=== PATIENT | male | born 1940 | race Caucasian/White ===

== ENCOUNTER 2018-12-13 11:49 | Inpatient (IN) | payer MEDICARE ==
[~2018-12-13] VITALS: Ht 165.1 cm; Wt 57.3 kg
[~2018-12-13 11:49] MED LIST: AMBIEN5 MG PO; AMLODIPINE BESYL5 MG PO; BYSTOLIC5 MG PO; CENTRUM SILVER1 EAC1 PO; CO Q10100 MG; FLOMAX0.4 MG PO; GARLIC1 EACH
[2018-12-13] MEDS ORDERED: METHYLPREDNISOLONE SOD SUCC 125 MG/2ML VIAL IV NR (12:00)
--- NOTE | 2018-12-13 12:13 | NUR ---
- Mayuri [phone]
[2018-12-13] MEDS ORDERED: ASPIRIN 81 MG CHEW TAB PO ONE ×2 (12:15→13:00)
[2018-12-13] MEDS ORDERED: SODIUM CHLORIDE 0.9% 1000ML 1,000 ML IV SCH (12:58)
[2018-12-13] MEDS ORDERED: ONDANSETRON HCL INJ 2MG/ML 2ML 2 MG/ML VIAL IV PRN (13:00)
--- NOTE | 2018-12-13 13:12 | Diagnostic Imaging Report ---
EXAMINATION: CHEST SINGLE (PORTABLE) INDICATION: Shortness of breath COMPARISON: None FINDINGS: LINES/TUBES:EKG leads overlie the chest. LUNGS:The lungs are moderately inflated. There are bilateral diffuse increased interstitial opacities and likely bronchiectasis. PLEURA:No pleural effusion or pneumothorax. MEDIASTINUM:The cardiomediastinal silhouette appears normal in size and shape. BONES/SOFT TISSUES:No acute osseous injury. ABDOMEN:No free air under the diaphragm. IMPRESSION: Bilateral diffusely increased interstitial opacities and likely bronchiectasis. Findings are most compatible with chronic interstitial lung disease. Recommend chest CT for further evaluation. Signed by: Iman Pace MD on 12/13/2018 1:08 PM
[2018-12-13] MEDS ORDERED: ALBUTEROL SULF 0.083% NEB SOLN 3 ML NEB NEB STA (13:28)
[2018-12-13] MEDS ORDERED: IPRATROPIUM BROMIDE 0.02% 2.5 ML NEB NEB ONE (13:30)
[2018-12-13 13:33] LABS: BASOPHILS % 0.3 % (0.0-1.0); EOSINOPHILS % 0.6 % (0.0-6.0); HEMATOCRIT 49.6 % (38.2-49.6); LYMPHOCYTES # (AUTO) 0.6 (1.0-3.2); LYMPHOCYTES % 9.1 % (18.0-39.1); MEAN CORPUSCULAR HEMOGLOBIN 32.4 pg (28-32); MEAN CORPUSCULAR HGB CONC 36.3 g/dL (31-35); MEAN CORPUSCULAR VOLUME 89.2 fL (81-99); MONOCYTES # (AUTO) 0.2 (0.2-0.8); NEUTROPHILS # (AUTO) 5.7 (2.1-6.9); NEUTROPHILS % 86.5 % (38.7-80.0); PLATELET COUNT 213 x10e3/uL (140-360); RED BLOOD COUNT 5.56 x10e6/uL (4.3-5.7); RED CELL DISTRIBUTION WIDTH 12.5 % (11.7-14.4)
[2018-12-13 13:42] LABS: INR 1.1; PROTHROMBIN TIME 14.7 seconds (11.9-14.5)
[2018-12-13 13:43] LABS: PARTIAL THROMBOPLASTIN TIME 34.7 seconds (23.8-35.5)
[2018-12-13 13:53] LABS: ALANINE AMINOTRANSFERASE 8 IU/L (0-55); ALBUMIN 3.5 g/dL (3.5-5.0); ALBUMIN/GLOBULIN RATIO 0.9 (0.8-2.0); ALKALINE PHOSPHATASE 115 IU/L (40-150); ANION GAP 16.6 mmol/L (8-16); BLOOD UREA NITROGEN 9 mg/dL (7-26); BUN/CREATININE RATIO 10 (6-25); CALCIUM 10.3 mg/dL (8.4-10.2); CARBON DIOXIDE 22 mmol/L (22-29); CHLORIDE 103 mmol/L (98-107); CREATINE KINASE 19 IU/L (30-200); CREATININE, SERUM 0.87 mg/dL (0.72-1.25); EST GLOMERULAR FILTRATION RATE > 60 ML/MIN (60-); GLUCOSE 125 mg/dL (74-118); POTASSIUM 3.6 mmol/L (3.5-5.1); SODIUM 138 mmol/L (136-145)
[2018-12-13] MEDS: AZITHROMYCIN 500MG/NS 250 ML 250 ML IV SCH (13:55)
[2018-12-13] MEDS: CEFTRIAXONE SOD 1 GM/NS 50 ML 50 ML IV SCH (13:56)
[2018-12-13] MEDS ORDERED: METHYLPREDNISOLONE SOD SUCC 125 MG/2ML VIAL IV SCH ×2 (14:00→21:00)
--- NOTE | 2018-12-13 14:08 | NUR ---
Report to RODO Jolly
[2018-12-13 14:14] LABS: ABG HCO3 21 mmol/L (23-28); ABG PCO2 37 mmHg (41-51); ABG PH 7.37 (7.31-7.41); ABG PO2 96 mmHg (80-105)
[2018-12-13 14:36] VITALS: BP 119/81
--- NOTE | 2018-12-13 14:36 | NUR ---
Pt received from ER at this time, he arrived by stretcher. Pt is aox4 and able to verbalize needs. Denies any pain at this time. Pt was admitted for dyspnea. He complains of SOB with exertion. Pt is able to ambulate with minimal assistance. He is on O2 5L/NC. Family at the bedside.
[2018-12-13] MEDS ORDERED: ALBUTEROL/IPRATROPIUM 3 ML NEB NEB SCH (15:00)
[2018-12-13 15:37] VITALS: BP 119/81
--- NOTE | 2018-12-13 15:47 | Diagnostic Imaging Report ---
EXAM: CT Chest WITHOUT intravenous contrast 12/13/2018 1:34 PM INDICATION: Shortness of breath COMPARISON: Chest radiograph of 12/13/2018 TECHNIQUE: Chest was scanned utilizing a multidetector helical scanner from the lung apex through the level of the adrenal glands without administration of IV contrast. Coronal and sagittal reformations were obtained. Routine protocol was performed. IV CONTRAST: None RADIATION DOSE: Total DLP: 390.5 mGy*cm. Dose modulation, iterative reconstruction, and/or weight based adjustment of the mA/kV was utilized to reduce the radiation dose to as low as reasonably achievable. COMPLICATIONS: None FINDINGS: LINES/ TUBES: None. LUNGS AND AIRWAYS: The central airways are patent. There is diffuse bronchial wall thickening and lower lobe predominant bilateral tubular bronchiectasis. There is severe diffuse centrilobular and paraseptal emphysema. Subpleural lower lobe predominant interstitial thickening and scarring with extensive honeycombing. No focal consolidation. PLEURA: No pleural effusion. No pneumothorax. HEART AND MEDIASTINUM: The thyroid gland appears unremarkable. Numerous prominent mediastinal lymph nodes, for example a 15 x 11mm low pretracheal node (series 2 image 52) and a 25 x 16 mm subcarinal lymph node (series 2 image 63). Right hilar lymphadenopathy measures up to 22 x 16 mm (series 2 image 62). The heart is not enlarged. No pericardial effusion. Atherosclerotic calcifications of the coronary arteries, thoracic aorta, and great vessels. UPPER ABDOMEN: Limited non-contrast views of the upper abdomen show no abnormality within the visualized liver, spleen, pancreas, or kidneys. The adrenal glands are normal. BONES: No acute osseous injury. Mild degenerative changes of the visualized spine. No suspicious lytic or blastic lesions. SOFT TISSUES: Unremarkable. IMPRESSION: Severe diffuse centrilobular and paraseptal emphysema. Lower lobe predominant interstitial thickening and scarring with tubular bronchiectasis and subpleural honeycombing is consistent with interstitial lung disease in a UIP pattern. Atherosclerotic calcifications of the coronary arteries, thoracic aorta, and great vessels. Signed by: Iman Pace MD on 12/13/2018 3:44 PM
[2018-12-13] MEDS ORDERED: METOPROLOL TART50 MG PO (17:45)
[2018-12-13] MEDS ORDERED: CITALOPRAM HBR20 MG PO (17:45)
[2018-12-13] MEDS ORDERED: ACETAMINOPHEN 325 MG TAB PO PRN (18:30)
[2018-12-13] MEDS ORDERED: ALBUTEROL/IPRATROPIUM 3 ML NEB NEB PRN (18:30)
[2018-12-13] MEDS ORDERED: HYDRALAZINE HCL 20 MG/ML VIAL IV PRN (18:30)
[2018-12-13] MEDS: ALBUTEROL/IPRATROPIUM 3 ML NEB NEB SCH (19:00)
--- NOTE | 2018-12-13 19:00 | NUR ---
received report from day nurse. patient is resting comfortably in bed. bed is in lowest position and call porras is within reach. will continue to monitor patient.
[2018-12-13 20:00] VITALS: BP 95/61
[2018-12-13] MEDS: ZOLPIDEM TARTRATE 5 MG TAB PO SCH (21:11)
[2018-12-13] MEDS: GUAIFENESIN 600 MG TAB PO SCH (21:11)
[2018-12-13] MEDS: METHYLPREDNISOLONE SOD SUCC 40 MG/ML VIAL 1ML IV SCH (21:11)
[2018-12-13 23:52] LABS: CREATINE KINASE MB 1.8 ng/mL (0-5.0)
[2018-12-14] VITALS (9 sets, daily range): BP systolic 97–148; BP diastolic 58–87
[2018-12-14 03:59] LABS: HEMOGLOBIN 15.1 g/dL (14.0-18.0); LYMPHOCYTES # (AUTO) 0.4 (1.0-3.2); LYMPHOCYTES % 4.3 % (18.0-39.1); MEAN CORPUSCULAR HEMOGLOBIN 32.5 pg (28-32); MEAN CORPUSCULAR VOLUME 90.3 fL (81-99); MONOCYTES # (AUTO) 0.1 (0.2-0.8); MONOCYTES % 0.9 % (4.4-11.3); NEUTROPHILS # (AUTO) 8.3 (2.1-6.9); NEUTROPHILS % 94.2 % (38.7-80.0); PLATELET COUNT 197 x10e3/uL (140-360); RED BLOOD COUNT 4.65 x10e6/uL (4.3-5.7); RED CELL DISTRIBUTION WIDTH 12.6 % (11.7-14.4)
[2018-12-14 04:23] LABS: INR 1.15; PROTHROMBIN TIME 15.3 seconds (11.9-14.5)
[2018-12-14 04:24] LABS: PARTIAL THROMBOPLASTIN TIME 35.7 seconds (23.8-35.5)
[2018-12-14 04:25] LABS: ALANINE AMINOTRANSFERASE 7 IU/L (0-55); ALBUMIN 2.9 g/dL (3.5-5.0); ALBUMIN/GLOBULIN RATIO 0.9 (0.8-2.0); ALKALINE PHOSPHATASE 96 IU/L (40-150); ANION GAP 11.7 mmol/L (8-16); BILIRUBIN,DIRECT 0.5 mg/dL (0.0-0.5); BLOOD UREA NITROGEN 13 mg/dL (7-26); BUN/CREATININE RATIO 16 (6-25); CALCIUM 9.8 mg/dL (8.4-10.2); CARBON DIOXIDE 25 mmol/L (22-29); CHLORIDE 104 mmol/L (98-107); CREATININE, SERUM 0.81 mg/dL (0.72-1.25); EST GLOMERULAR FILTRATION RATE > 60 ML/MIN (60-); GLUCOSE 195 mg/dL (74-118); POTASSIUM 3.7 mmol/L (3.5-5.1); SODIUM 137 mmol/L (136-145)
[2018-12-14 04:47] LABS: FREE T4 (FREE THYROXINE) 0.95 ng/dL (0.8-1.8); THYROID STIMULATING HORMONE 0.322 uIU/mL (0.350-4.940)
[2018-12-14 04:53] LABS: CREATINE KINASE 28 IU/L (30-200)
--- NOTE | 2018-12-14 06:09 | Diagnostic Imaging Report ---
EXAM EXAMINATION: CHEST SINGLE (PORTABLE) INDICATION: Shortness of breath COMPARISON: 12/13/2018. FINDINGS: LINES/TUBES:None. LUNGS:Redemonstration of bilateral diffuse coarsening of the pulmonary interstitium associated with honeycombing PLEURA:No pleural effusion or pneumothorax. MEDIASTINUM:The cardiomediastinal silhouette appears normal in size and shape. BONES/SOFT TISSUES:No acute osseous injury. ABDOMEN:No free air under the diaphragm. IMPRESSION: Stable examination. No change in bilateral diffuse interstitial lung disease pattern most suggestive of pulmonary fibrosis. Signed by: Dr. Charleen Santana M.D. on 12/14/2018 6:05 AM
--- NOTE | 2018-12-14 06:58 | NUR ---
RECEIVED PATIENT RESTING IN BED. NO ACUTE DISTRESS NOTED. NO S/S OF PAIN NOTED AT THIS TIME. CALL LIGHT WITHIN REACH. BED IN THE LOWEST POSITION.
--- NOTE | 2018-12-14 07:17 | NUR ---
report given to day nurse. patient is resting comfortably in bed. bed is in lowest position and call porras is within reach.
[2018-12-14] MEDS: ALBUTEROL/IPRATROPIUM 3 ML NEB NEB SCH ×4 (07:40→20:10)
[2018-12-14 07:48] LABS: BAND NEUTROPHILS % (MANUAL) 4 %; LYMPHOCYTES % (MANUAL) 4 % (19-48); NEUTROPHILS % (MANUAL) 92 % (40-74)
[2018-12-14 07:49] LABS: ANISOCYTOSIS S; PLATELET ESTIMATE ADEQUATE; PLATELET MORPHOLOGY COMMENT NORMAL; POIKILOCYTOSIS S; RBC MORPHOLOGY COMMENT NORMAL
[2018-12-14] MEDS: METHYLPREDNISOLONE SOD SUCC 40 MG/ML VIAL 1ML IV SCH ×2 (08:21→20:53)
[2018-12-14] MEDS: METOPROLOL TARTRATE 50 MG TAB PO SCH (08:21)
[2018-12-14] MEDS: TAMSULOSIN HCL 0.4 MG CAP PO SCH (08:21)
[2018-12-14] MEDS: FAMOTIDINE 20 MG TAB PO SCH ×2 (08:21→16:01)
[2018-12-14] MEDS: CITALOPRAM HYDROBROMIDE 20 MG TAB PO SCH (08:21)
[2018-12-14] MEDS: GUAIFENESIN 600 MG TAB PO SCH ×2 (08:22→20:53)
--- NOTE | 2018-12-14 10:25 | NUR ---
EDUCATED ABOUT VAUGHAN, SIGNED, FILED IN CHART, WITH COPY LEFT WITH FAMILY AT BEDSIDE. SPOKE
[2018-12-14] MEDS: CEFTRIAXONE SOD 1 GM/NS 50 ML 50 ML IV SCH (13:48)
[2018-12-14] MEDS: AZITHROMYCIN 500MG/NS 250 ML 250 ML IV SCH (14:27)
--- NOTE | 2018-12-14 15:02 | Consultation ---
DATE OF CONSULTATION: Pulmonary Critical Care Consultation CHIEF COMPLAINT: Dyspnea and weight loss. HISTORY OF PRESENT ILLNESS: The patient is a 78-year-old man. He has a history of COPD for 4 to 5 years. He uses inhalers at home, but does not have oxygen. He has been more short of breath over the past several months. He also notes a 20-pound weight loss over the past month. He denies fever. He is not complaining of chest pain. PAST MEDICAL HISTORY: 1. Atrial fibrillation. 2. COPD. 3. Bladder cancer. PAST SURGICAL HISTORY: Status post cystoscopy with tumor ablation. FAMILY HISTORY: Diabetes. SOCIAL HISTORY: The patient quit smoking several years ago. He is not a drinker. ALLERGIES: NO KNOWN DRUG ALLERGIES. REVIEW OF SYSTEMS: The patient is afebrile. He does have a recent 20-pound weight loss. He has no facial swelling or erythema. He does not complain of swollen glands. He has no chest pain. He does have dyspnea with exertion. He has minimal cough. He has no abdominal pain. He has no nausea or vomiting. He has no leg edema. PHYSICAL EXAMINATION: VITAL SIGNS: The patient is afebrile. The blood pressure is 114/72 and saturation is 96%. Pulse is 63. HEENT: Shows no facial swelling or erythema. The nasal mucosa is normal. The oropharynx is normal. LYMPHATIC: Shows no submandibular, cervical, or supraclavicular adenopathy. CARDIAC: Reveals a regular rate and rhythm with a normal S1 and S2. There are no murmurs or rubs. LUNGS: Auscultation of lungs reveals rhonchorous breath sounds bilaterally. There is no wheezing. ABDOMEN: Soft and nontender. There is no rebound or guarding. EXTREMITIES: Show no leg edema or calf tenderness. There is no cyanosis or clubbing. SKIN: Shows no rashes. NEUROLOGICAL: Shows no focal abnormalities. RADIOGRAPHIC DATA: Chest CT shows severe diffuse central lobular emphysema. He also has interstitial changes and bronchiectasis bilaterally in the lower lung faith. IMPRESSION: 1. Bronchiectasis with acute exacerbation. 2. Chronic obstructive pulmonary disease with acute exacerbation. 3. Severe protein-calorie malnutrition. 4. Atrial fibrillation. 5. Benign prostatic hypertrophy with some urinary retention. RECOMMENDATIONS: 1. Taper steroids. 2. The patient should be on a maintenance inhaler such as Trelegy daily as an outpatient with albuterol for rescue. 3. Dietary evaluation. 4. Nutritional supplements. 5. Given the bronchiectasis and recent weight loss, the patient also needs an evaluation for atypical mycobacterial infection. This may require a bronchoscopy as an outpatient. 6. Physical therapy. 7. Echocardiogram and Cardiology evaluation. MD MARIELA Melo/JOSIAS /[id number]
--- NOTE | 2018-12-14 15:40 | NUR ---
Nutrition Intervention Note RD Recommendation(s) for Physician: -Continue diet as ordered -Rec Glucerna BID to increase protein-calorie intake -The patient meets criteria for unspecified SEVERE protein-calorie malnutrition. Plan of Care: RD following, monitoring for tolerance and adequacy, ONS rec Nutrition reason for involvement: Nutrition risk trigger MST RD Assessment 12/14 78yo M, who was admitted for dyspnea and hypoxia. Currently on IV steroid and IV abx. Visited pt in the room. Per , pt has been eating poorly for over 6 months. stated sometimes he eats 3 meals a day and sometimes just once a day. Pt has had ~20lbs weight loss in the last 6 months. Pt denied any nausea and vomiting today. Pt ate better since hospital admission with 75-100% recorded meal intake. LBM 12/14. Pt denied any chewing or swallowing difficulty. RD discussed menu options with pt and . Pt was also willing to try Glucerna. Will continue to monitor and follow. Principal Problems/Diagnoses: 1. Bronchiectasis with acute exacerbation. 2. Chronic obstructive pulmonary disease with acute exacerbation. 3. Severe protein-calorie malnutrition. PMH: COPD, bladder cancer, Afib GI: abdomen soft, flatus present Skin: no pressure wound noted Labs: (12/14) Glucose 195 H Meds: abx, solu-medrol, pepcid Ht: 65in Wt: 124.5lb BMI: 20.7kg/m2 IBW: 136lb +/- 10% Malnutrition Evaluation (12/14) The patient meets criteria for unspecified SEVERE protein-calorie malnutrition. Energy intake: <75% of estimated intake for >1 month Weight loss: >7.5% in 3 months (Chronic) Fat loss: Moderate clavicle protrusion, hollow look around orbital region Muscle loss: Moderate temporal depression Supporting Evidence: Fluid accumulation: None Functional Status: reduced Nutrition Prescription (Diet Order): cardiac diet Estimated Nutritional Needs: Calories: 1425 1995kcal(25-35kcal/kg/d) Weight used: CBW Protein: 57 86g (1-1.5g/kg/d) Weight used: CBW Diet Adequacy: Meeting calorie needs, Not meeting protein needs Diet Education Needs Assessment: Diet education not indicated. Nutrition Care Level: Moderate Nutrition Diagnosis: Severe malnutrition related to inadequate energy intake as evidenced by <75% of estimated intake for >1 month, >7.5% weight loss in 3 months (Chronic), and moderate muscle/ fat loss. Goal: Patient will meet 75-100% of estimated needs by follow up Progress: Progressing Interventions: Modified diet, Commercial beverage Monitoring/Evaluation: Total energy intake, Total protein intake, Modified diet, Liquid supplement, Weight change Signed: Christine Dia MS, RD, LD
--- NOTE | 2018-12-14 19:02 | NUR ---
REPORT GIVEN TO ONCOMING NURSE. WALKING ROUNDS DONE. PATIENT IS RESTING IN BED. NO ACUTE DISTRESS NOTED. CALL LIGHT WITHIN REACH. BED IN THE LOWEST POSITION.
[2018-12-14] MEDS: ZOLPIDEM TARTRATE 5 MG TAB PO SCH (20:53)
[2018-12-15] VITALS (9 sets, daily range): BP systolic 118–162; BP diastolic 62–83
[2018-12-15] MEDS: ALBUTEROL/IPRATROPIUM 3 ML NEB NEB SCH ×4 (01:10→19:05)
[2018-12-15 02:32] LABS: BASOPHILS % 0.1 % (0.0-1.0); HEMATOCRIT 41.8 % (38.2-49.6); HEMOGLOBIN 14.6 g/dL (14.0-18.0); LYMPHOCYTES # (AUTO) 0.6 (1.0-3.2); LYMPHOCYTES % 3.5 % (18.0-39.1); MEAN CORPUSCULAR HEMOGLOBIN 32.6 pg (28-32); MEAN CORPUSCULAR HGB CONC 34.9 g/dL (31-35); MEAN CORPUSCULAR VOLUME 93.3 fL (81-99); MONOCYTES # (AUTO) 0.4 (0.2-0.8); MONOCYTES % 2.3 % (4.4-11.3); NEUTROPHILS # (AUTO) 16.8 (2.1-6.9); NEUTROPHILS % 93.3 % (38.7-80.0); PLATELET COUNT 200 x10e3/uL (140-360); RED BLOOD COUNT 4.48 x10e6/uL (4.3-5.7); RED CELL DISTRIBUTION WIDTH 13.2 % (11.7-14.4)
[2018-12-15 03:15] LABS: ANION GAP 14.4 mmol/L (8-16); BLOOD UREA NITROGEN 15 mg/dL (7-26); BUN/CREATININE RATIO 18 (6-25); CALCIUM 10.2 mg/dL (8.4-10.2); CARBON DIOXIDE 24 mmol/L (22-29); CHLORIDE 106 mmol/L (98-107); CREATININE, SERUM 0.85 mg/dL (0.72-1.25); EST GLOMERULAR FILTRATION RATE > 60 ML/MIN (60-); GLUCOSE 164 mg/dL (74-118); POTASSIUM 4.4 mmol/L (3.5-5.1); SODIUM 140 mmol/L (136-145)
[2018-12-15] MEDS ORDERED: ALBUTEROL HFA INH (06:26)
[2018-12-15] MEDS ORDERED: TRELEGY INH (06:26)
[2018-12-15] MEDS ORDERED: ZITHROMAX500 MG PO (06:26)
[2018-12-15] MEDS ORDERED: CEFDINIR300 MG PO (06:26)
[2018-12-15] MEDS ORDERED: PREDNISONE10 MG PO (06:28)
--- NOTE | 2018-12-15 06:52 | NUR ---
RECEIVED PATIENT RESTING IN BED. NO ACUTE DISTRESS NOTED. NO S/S OF PAIN NOTED AT THIS TIME. FAMILY MEMBER AT BEDSIDE. CALL LIGHT WITHIN REACH. BED IN THE LOWEST POSITION.
[2018-12-15] MEDS: FAMOTIDINE 20 MG TAB PO SCH ×2 (08:25→16:04)
[2018-12-15] MEDS: CITALOPRAM HYDROBROMIDE 20 MG TAB PO SCH (08:25)
[2018-12-15] MEDS: GUAIFENESIN 600 MG TAB PO SCH ×2 (08:25→21:16)
[2018-12-15] MEDS: METHYLPREDNISOLONE SOD SUCC 40 MG/ML VIAL 1ML IV SCH ×2 (08:25→21:16)
[2018-12-15] MEDS: TAMSULOSIN HCL 0.4 MG CAP PO SCH (08:25)
[2018-12-15] MEDS: METOPROLOL TARTRATE 50 MG TAB PO SCH (08:25)
--- NOTE | 2018-12-15 10:01 | NUR ---
0930 Pt was 95% on 4L HFNC at rest. 0935 Pt was 84% on Room Air at rest.
--- NOTE | 2018-12-15 10:14 | NUR ---
Met with pt and his . Both agree to home oxygen. Signed choice letter for [facility] [phone]. Notified Shawn with [employer] [phone]. Oxygen will be delivered today. Updated nurse.
[2018-12-15] MEDS: CEFTRIAXONE SOD 1 GM/NS 50 ML 50 ML IV SCH (13:12)
[2018-12-15] MEDS: AZITHROMYCIN 500MG/NS 250 ML 250 ML IV SCH (13:50)
[2018-12-15] MEDS ORDERED: RISPERIDONE 0.5 MG TAB PO NR (15:00)
--- NOTE | 2018-12-15 15:00 | NUR ---
PATIENT GETTING AGITATED, CONFUSED. IV LINES PULLED. DR. VICENTE ROUNDING ON PATIENT.
--- NOTE | 2018-12-15 15:02 | Progress Note ---
DATE: Pulmonary Critical Care Progress Note SUBJECTIVE: The patient is somewhat agitated and confused today. He still have some dyspnea, although it is improved yesterday. PHYSICAL EXAMINATION: VITAL SIGNS: The blood pressure is 124/74 and saturation is 99%, and his pulse rate is 57. HEENT: Shows no facial swelling or erythema. CARDIAC: Reveals regular rate and rhythm with a normal S1 and S2. There are no murmurs or rubs heard. LUNGS: Auscultation of lungs reveals a prolonged expiratory phase bilaterally. There is no wheezing. ABDOMEN: Soft and nontender. There is no rebound or guarding. EXTREMITIES: Show no leg edema or calf tenderness. There is no cyanosis or clubbing. SKIN: Shows no rashes. NEUROLOGICAL: Shows no focal abnormalities. LABORATORY DATA: White blood cell count is 18 and hemoglobin is 14.6. The platelet count is 200. The BUN to creatinine ratio is normal. The other electrolytes are within normal limits. IMPRESSION: 1. Metabolic encephalopathy. 2. Bronchiectasis with acute exacerbation. 3. Chronic obstructive pulmonary disease with acute exacerbation. 4. Severe protein-calorie malnutrition. 5. Atrial fibrillation. 6. Benign prostatic hypertrophy with urinary retention. PLAN: 1. Decrease steroids to prevent any worsening encephalopathy. 2. Low-dose risperidone for agitation. 3. Bronchodilators. 4. Oxygen. 5. Continue nutritional supplementation. 6. We will discuss the case with Anna Espinal and Dr. Lovett. Ari Stanley MD [facility]/MODL /[id number]
--- NOTE | 2018-12-15 15:20 | NUR ---
PATIENT GETTING AGITATED, PULLED OUT IVS. DR. VICENTE ROUNDING. PER MD SITTER ORDERED. MD AWARE OF IVS BEING OUT AND PATIENT NEEDING IV ABX.
--- NOTE | 2018-12-15 18:57 | NUR ---
Report given to oncoming nurse. Walking rounds done. Patient is resting in bed. No acute distress noted. No s/s of pain noted at this time. Sitter at bedside. Call light within reach. Bed in the lowest position.
[2018-12-15] MEDS: RISPERIDONE 0.5 MG TAB PO SCH (19:38)
[2018-12-15] MEDS: ZOLPIDEM TARTRATE 5 MG TAB PO SCH (21:16)
[2018-12-15] MEDS: LORAZEPAM 0.5 MG TAB PO PRN (23:35)
[2018-12-16] VITALS (7 sets, daily range): BP systolic 141–155; BP diastolic 68–93
[2018-12-16] MEDS: ALBUTEROL/IPRATROPIUM 3 ML NEB NEB SCH ×4 (00:35→19:30)
[2018-12-16 02:55] LABS: BASOPHILS % 0.1 % (0.0-1.0); HEMOGLOBIN 14.8 g/dL (14.0-18.0); LYMPHOCYTES # (AUTO) 0.5 (1.0-3.2); LYMPHOCYTES % 3.9 % (18.0-39.1); MEAN CORPUSCULAR HEMOGLOBIN 33.5 pg (28-32); MEAN CORPUSCULAR HGB CONC 35.2 g/dL (31-35); MONOCYTES # (AUTO) 0.4 (0.2-0.8); MONOCYTES % 3.4 % (4.4-11.3); NEUTROPHILS # (AUTO) 11.6 (2.1-6.9); PLATELET COUNT 117 x10e3/uL (140-360); RED BLOOD COUNT 4.42 x10e6/uL (4.3-5.7); RED CELL DISTRIBUTION WIDTH 13.1 % (11.7-14.4)
[2018-12-16 03:30] LABS: ALANINE AMINOTRANSFERASE 18 IU/L (0-55); ALBUMIN 3.1 g/dL (3.5-5.0); ALKALINE PHOSPHATASE 82 IU/L (40-150); ANION GAP 15.1 mmol/L (8-16); BLOOD UREA NITROGEN 22 mg/dL (7-26); BUN/CREATININE RATIO 28 (6-25); CALCIUM 10.4 mg/dL (8.4-10.2); CARBON DIOXIDE 27 mmol/L (22-29); CHLORIDE 104 mmol/L (98-107); EST GLOMERULAR FILTRATION RATE > 60 ML/MIN (60-); GLUCOSE 127 mg/dL (74-118); POTASSIUM 4.1 mmol/L (3.5-5.1); SODIUM 142 mmol/L (136-145)
--- NOTE | 2018-12-16 07:00 | NUR ---
Report given to oncoming nurse. Walking rounds done. Patient is resting in bed, no acute distress noted. at bedside. 1:1 sitter at bedside. Call light within reach. Bed in the lowest position.
--- NOTE | 2018-12-16 07:00 | NUR ---
Received patient resting in bed. Respirations even and unlabored, no acute distress noted. No s/s of pain noted. at bedside. 1:1 sitter at bedside. Call light within reach. Bed in the lowest position. Addendum: 12/16/18 at 0726 by TYLER BATES RN Wrong time. 0703 correct time.
[2018-12-16] MEDS: METOPROLOL TARTRATE 50 MG TAB PO SCH (08:47)
[2018-12-16] MEDS: FAMOTIDINE 20 MG TAB PO SCH ×2 (08:47→16:30)
[2018-12-16] MEDS: TAMSULOSIN HCL 0.4 MG CAP PO SCH (08:47)
[2018-12-16] MEDS: CITALOPRAM HYDROBROMIDE 20 MG TAB PO SCH (08:47)
[2018-12-16] MEDS: GUAIFENESIN 600 MG TAB PO SCH ×2 (08:47→20:20)
[2018-12-16] MEDS: RISPERIDONE 0.5 MG TAB PO SCH ×2 (08:47→18:04)
[2018-12-16] MEDS: METHYLPREDNISOLONE SOD SUCC 40 MG/ML VIAL 1ML IV SCH (08:49)
--- NOTE | 2018-12-16 10:13 | NUR ---
PAGED DR. VICENTE TO NOTIFY THAT PATIENT IS SEEING THINGS. PATIENT KEEPS TELLING SITTER THAT THERE ARE ANTS ON HIS CUP. NO ANSWER, LVM. WAITING EDUCATIONAL MANAGER BACK.
--- NOTE | 2018-12-16 10:19 | NUR ---
DR. VICENTE ROUNDING ON PATIENT. NOTIFIED HIM OF PATIENT SEEING ANTS. NEW ORDERS PUT IN.
--- NOTE | 2018-12-16 10:40 | NUR ---
PATIENT OFF THE UNIT FOR MRI AND CT SCAN.
[2018-12-16] MEDS: LORAZEPAM 0.5 MG TAB PO PRN ×2 (11:18→20:20)
--- NOTE | 2018-12-16 11:21 | Progress Note ---
DATE: SUBJECTIVE: The patient remains confused. He complains that there are some ants in the room. He did not sleep well last night. He has less dyspnea. PHYSICAL EXAMINATION: VITAL SIGNS: The patient is afebrile. Vital signs are stable. HEENT: Shows no facial swelling or erythema. CARDIAC: Reveals regular rate and rhythm with normal S1 and S2. There are no murmurs or rubs heard. LUNGS: Auscultation of lungs reveals prolonged expiratory phase bilaterally. ABDOMEN: Soft, nontender. There is no rebound or guarding. EXTREMITIES: Show no leg edema or calf tenderness. There is no cyanosis or clubbing. SKIN: Shows no rashes. NEUROLOGIC: Shows confusion. IMPRESSION: 1. Metabolic encephalopathy. 2. Bronchiectasis with acute exacerbation. 3. Chronic obstructive pulmonary disease with acute exacerbation. 4. Benign prostatic hypertrophy. PLAN: 1. Discontinue Solu-Medrol, which could be worsening confusion. 2. Stop Ambien and use trazodone 50 mg p.o. at night for sleep. 3. Continue a sitter. Because of the patient's confusion and agitation, he is at high risk for falling. 4. Imaging of the brain is scheduled for today. 5. Continue nutritional supplements. MD MARIELA Melo/JOSIAS /[id number]
--- NOTE | 2018-12-16 11:26 | Diagnostic Imaging Report ---
CT BRAIN WO HISTORY: Altered mental status COMPARISON: None. Technique: Noncontrast axial scans were obtained from skull base to the vertex. Coronal and sagittal reconstructions obtained from the axial data. One or more of the following dose reduction techniques were used: Automated exposure control, adjustment of the mA and/or kV according to patient size, and/or utilization of iterative reconstruction technique. DISCUSSION: Scalp/Skull: Unremarkable. Brain sulci: Mildly prominent. Ventricles: Compensatory dilatation. Extra-axial spaces: No masses or fluid collections. Carotid and vertebral artery calcifications are present. Parenchyma: Mild right temporal pole and bilateral medial orbitofrontal encephalomalacia may be from remote trauma. Mild bilateral deep white matter hypodensity is likely chronic microvascular ischemic change. Otherwise, no masses, hemorrhage, or large vascular territory acute infarct. Dural sinuses: No abnormal densities. Sellar/Suprasellar region: Intact. Skull base: Intact. Incidental findings: None. IMPRESSION: 1. No acute intracranial abnormalities. 2. Mild supratentorial chronic microvascular ischemic change. Mild generalized cerebral volume loss. 3. Mild right temporal pole and bilateral orbitofrontal encephalomalacia may be from remote trauma. Signed by: Dr. Buzz Jain M.D. on 12/16/2018 11:23 AM
--- NOTE | 2018-12-16 11:53 | NUR ---
PATIENT BACK TO UNIT AT THIS TIME.
--- NOTE | 2018-12-16 11:58 | NUR ---
NOTIFIED DR. VICENTE OF CT RESULTS AND MRI NOT BEING DONE DUE TO PATIENT GETTING AGGRESSIVE. PER MD CANCEL MRI.
[2018-12-16] MEDS ORDERED: SODIUM CHLORIDE 0.9% 250ML 250 ML ONE (12:54)
[2018-12-16] MEDS: CEFTRIAXONE SOD 1 GM/NS 50 ML 50 ML IV SCH (13:00)
[2018-12-16 13:12] LABS: BAND NEUTROPHILS % (MANUAL) 4 %; LYMPHOCYTES % (MANUAL) 6 % (19-48); MONOCYTES % (MANUAL) 3 % (3.4-9.0)
[2018-12-16 13:13] LABS: NEUTROPHILS % (MANUAL) 87 % (40-74)
[2018-12-16 13:14] LABS: PLATELET ESTIMATE SLIGHTLY DECREASED; PLATELET MORPHOLOGY COMMENT NORMAL; RBC MORPHOLOGY COMMENT NORMAL
[2018-12-16] MEDS: AZITHROMYCIN 500MG/NS 250 ML 250 ML IV SCH (13:40)
--- NOTE | 2018-12-16 18:05 | NUR ---
Patient trying to get out of bed. Medicated patient with scheduled risperdal. 1: sitter at bedside. Will continue to monitor.
--- NOTE | 2018-12-16 19:05 | NUR ---
PT IS RESTING IN BED WITH AND 1:1 SITTER AT BEDSIDE. RESPIRATION IS EVEN AND UNLABORED, NO DISTRESS NOTED. BED IN THE LOWEST POSITION, LOCKED, BED ALARM ON, AND CALL LIGHT WITHIN REACH. WILL CONTINUE TO MONITOR.
[2018-12-16] MEDS ORDERED: TRAZODONE HCL 50 MG TAB PO SCH (21:00)
[2018-12-17] VITALS (8 sets, daily range): BP systolic 84–154; BP diastolic 61–95
[2018-12-17] MEDS: AZITHROMYCIN 500MG/NS 250 ML 250 ML IV SCH (02:30)
[2018-12-17 03:57] LABS: EOSINOPHILS % 0.3 % (0.0-6.0); HEMATOCRIT 47.1 % (38.2-49.6); HEMOGLOBIN 16.3 g/dL (14.0-18.0); LYMPHOCYTES # (AUTO) 1.3 (1.0-3.2); LYMPHOCYTES % 11.4 % (18.0-39.1); MEAN CORPUSCULAR HEMOGLOBIN 32.3 pg (28-32); MEAN CORPUSCULAR HGB CONC 34.6 g/dL (31-35); MEAN CORPUSCULAR VOLUME 93.5 fL (81-99); MONOCYTES # (AUTO) 0.8 (0.2-0.8); MONOCYTES % 6.8 % (4.4-11.3); NEUTROPHILS # (AUTO) 9.4 (2.1-6.9); NEUTROPHILS % 80.9 % (38.7-80.0); PLATELET COUNT 217 x10e3/uL (140-360); RED BLOOD COUNT 5.04 x10e6/uL (4.3-5.7); RED CELL DISTRIBUTION WIDTH 13.1 % (11.7-14.4)
[2018-12-17 04:16] LABS: ANION GAP 10.4 mmol/L (8-16); BLOOD UREA NITROGEN 15 mg/dL (7-26); BUN/CREATININE RATIO 22 (6-25); CALCIUM 9.9 mg/dL (8.4-10.2); CARBON DIOXIDE 30 mmol/L (22-29); CHLORIDE 101 mmol/L (98-107); CREATININE, SERUM 0.67 mg/dL (0.72-1.25); EST GLOMERULAR FILTRATION RATE > 60 ML/MIN (60-); GLUCOSE 106 mg/dL (74-118); POTASSIUM 4.4 mmol/L (3.5-5.1); SODIUM 137 mmol/L (136-145)
[2018-12-17] MEDS: LORAZEPAM 0.5 MG TAB PO PRN (04:54)
--- NOTE | 2018-12-17 05:18 | NUR ---
PER UNDERWRITING CLERK GORDON CAILIN STOP ATIVAN 0.5MG TAB Q6H PRN AND CANCEL URINALYSIS WITH MICRO. WILL CONTINUE TO MONITOR.
[2018-12-17] MEDS ORDERED: FUROSEMIDE INJ 10 MG/ML 4 ML VIAL IV ONE (05:45)
[2018-12-17 06:53] LABS: BILIRUBIN,URINE NEGATIVE (NEGATIVE); CLARITY,URINE CLEAR (CLEAR); COLOR,URINE YELLOW (YELLOW); KETONES,URINE NEGATIVE (NEGATIVE); LEUKOCYTE ESTERASE ,URINE NEGATIVE (NEGATIVE); NITRITE,URINE NEGATIVE (NEGATIVE); PROTEIN,URINE DIPSTICK NEGATIVE (NEGATIVE); URINE UROBILINOGEN 0.2 mg/dL (0.2 - 1)
--- NOTE | 2018-12-17 07:00 | NUR ---
RECEIVED PATIENT IN BEDSIDE REPORT. PATIENT IS SLEEPING IN BED. AROUSABLE, BUT QUICKLY FALLS BACK ASLEEP. L FA 20G IV ASYMPTOMATIC, INTACT, AND PATENT. AT BEDSIDE. BED LOCKED IN LOWEST POSITION, SIDE RAILS UPX2, CALL LIGHT IN REACH, 1:1 SITTER AT BEDSIDE.
[2018-12-17] MEDS: ALBUTEROL/IPRATROPIUM 3 ML NEB NEB SCH ×4 (07:10→19:15)
[2018-12-17 07:15] LABS: BACTERIA,URINE FEW /HPF; EPITHELIAL CELLS,URINE FEW /LPF; RBC,URINE 0-5 /HPF (0-5); WBC,URINE (MAN) 0-5 /HPF (0-5)
[2018-12-17] MEDS: FAMOTIDINE 20 MG TAB PO SCH ×2 (07:30→17:48)
[2018-12-17] MEDS: GUAIFENESIN 600 MG TAB PO SCH ×2 (09:00→21:04)
[2018-12-17] MEDS: CITALOPRAM HYDROBROMIDE 20 MG TAB PO SCH (09:00)
[2018-12-17] MEDS: RISPERIDONE 0.5 MG TAB PO SCH (09:00)
[2018-12-17] MEDS: TAMSULOSIN HCL 0.4 MG CAP PO SCH (09:00)
[2018-12-17] MEDS: METOPROLOL TARTRATE 50 MG TAB PO SCH (09:00)
--- NOTE | 2018-12-17 12:00 | NUR ---
PATIENT SLOWLY WAKING UP, ATE SOME BREAKFAST, BUT FALLS BACK ASLEEP OFTEN. EASILY AROUSED. SITTER AT BEDSIDE.
--- NOTE | 2018-12-17 12:26 | NUR ---
EDUCATED ABOUT IMM, SIGNED, FILED IN CHART, WITH COPY LEFT WITH FAMILY AT BEDSIDE.
[2018-12-17] MEDS: CEFTRIAXONE SOD 1 GM/NS 50 ML 50 ML IV SCH (13:51)
[2018-12-17 14:33] LABS: ABG HCO3 36 mmol/L (23-28); ABG PCO2 57 mmHg (41-51); ABG PO2 129 mmHg (80-105)
[2018-12-17] MEDS ORDERED: TRAZODONE HCL 50 MG TAB PO PRN (14:45)
[2018-12-17] MEDS ORDERED: HALOPERIDOL LACTATE 5 MG/ML VIAL IM PRN (14:45)
--- NOTE | 2018-12-17 16:03 | Progress Note ---
DATE: Pulmonary Critical Care Progress Note SUBJECTIVE: The patient is less agitated. He is eating better. He still has some daytime somnolence. PHYSICAL EXAMINATION: VITAL SIGNS: The patient is afebrile. The vital signs are stable. HEENT: Shows no facial swelling or erythema. CARDIAC: Reveals a regular rate and rhythm with normal S1, S2. LUNGS: Auscultation of lungs shows clear breath sounds bilaterally. There is no wheezing. ABDOMEN: Soft, nontender. There is no rebound or guarding. EXTREMITIES: Show no leg edema or calf tenderness. There is no cyanosis or clubbing. SKIN: Shows no rashes. NEUROLOGICAL: Shows no focal abnormalities. IMPRESSION: 1. Metabolic encephalopathy. 2. Bronchiectasis with acute exacerbation. 3. Moderate protein-calorie malnutrition. 4. Chronic obstructive pulmonary disease with acute exacerbation. 5. Benign prostatic hypertrophy. PLAN: 1. Repeat ABG. 2. Continue oxygen. 3. Continue bronchodilators. 4. Decrease risperidone to 0.25 mg p.o. at bedtime. Ari Stanley MD [facility]/MODL /[id number]
--- NOTE | 2018-12-17 16:30 | NUR ---
PATIENT TO MRI AT THIS TIME. PATIENT AWAKE, TRANSFERRED TO WHEELCHAIR WITH ASSISTANCE. ACCOMPANYING TO MRI TO BE THERE IN CASE HE GETS AGITATED TO TRY TO CALM HIM DOWN. PATIENT CALM AT THIS TIME.
--- NOTE | 2018-12-17 17:45 | NUR ---
PATIENT RETURNED FROM MRI. PATIENT TOLERATED PROCEDURE WELL. PATIENT IS AWAKE AND ABLE TO SPEAK, THOUGH STILL SPEAKS SLOWLY. PATIENT EATING DINNER. SITTER AND AT BEDSIDE. NO PAIN REPORTED. NO ANXIETY NOTED. PATIENT WANTS TO GO HOME, BUT IS NOT COMBATIVE OR AGITATED AT THIS TIME.
--- NOTE | 2018-12-17 19:25 | NUR ---
PT IS RESTING IN BED WITH HIS AND 1:1 SITTER AT BEDSIDE. RESPIRATION IS EVEN AND UNLABORED, NO DISTRESS NOTED. BED IN THE LOWEST POSITION, LOCKED, BED ALARM ON, AND CALL LIGHT WITHIN REACH. WILL CONTINUE TO MONITOR.
[2018-12-17] MEDS ORDERED: RISPERIDONE 0.5 MG TAB PO SCH ×2 (21:00)
[2018-12-17] MEDS ORDERED: RISPERIDONE 0.5 MG TAB PO PRN (21:00)
--- NOTE | 2018-12-17 22:34 | Consultation ---
DATE OF CONSULTATION: 12/17/2018 REASON FOR CONSULTATION: To evaluate patient's psychosis. HISTORY OF PRESENT ILLNESS: The patient is a 78-year-old male admitted to the hospital for hypoxia and dyspnea. Psychiatric consultation is called to evaluate the patient's psychosis and hallucination, agitation. As per the medical record, the patient has a history of COPD, atrial fibrillation, and bladder cancer. The patient apparently has been losing weight 20 pounds over the last month. The patient is found to be in the room today with his and sitter. The patient is lying on the bed. History is taken with the help of the at first. The patient's reports that he is not confused. He is forgetful at home. He has never been diagnosed with dementia or any mood issues in the past. Two days after admission to the hospital, he is confused, starting to hallucinate, but since he has been sleeping a lot as per the . The patient is calm at this time. As per nurse, the patient has been agitated last night. He got a p.r.n. Ativan and also another one at 05:00 a.m. today. He has been sleeping throughout most of the day. The patient is arousable and oriented to self, place, and time. His speech is very soft. He reports doing okay. Denies any depression. Denies any anxiety. Denies any hallucination. No suicidal ideation reported. He is not combative. PAST PSYCHIATRIC HISTORY: The patient has never seen a psychiatrist. Has never attempted suicide. Drinks alcohol occasionally. He does not use drugs. FAMILY HISTORY: Denies. SOCIAL HISTORY: The patient lives with his . MENTAL STATUS EXAM: The patient is an elderly male. He is alert, awake, and oriented to situation. His mood is dysphoric. Affect is congruent. Psychomotor state is retardation. He does not have any suicidal or homicidal ideation. Denies any hallucination. Insight and judgment are fair. Memory appears to be grossly intact. CURRENT MEDICATIONS: 1. Ceftriaxone. 2. Albuterol. 3. Trazodone 50 mg p.o. q.h.s. 4. Azithromycin. 5. Ondansetron. 6. Famotidine. 7. Flomax. 8. Metoprolol. 9. Celexa 10 mg p.o. daily. 10. Mucinex. 11. Risperdal 0.25 mg p.o. q.h.s. 12. Hydralazine. 13. Tylenol. CURRENT LABS: WBC 7.65, RBC 5.04, hemoglobin 16.2, hematocrit 47.1, platelet is 217. Chemistry; sodium 137, potassium 4.4, chloride 101, CO2 30, BUN 15, creatinine 0.67, AST 23, and ALT 18. ASSESSMENT: Unspecified psychosis. PLAN: 1. Add Risperdal 0.5 mg p.o. 3 times a day as needed. 2. Continue with Risperdal 0.25 mg p.o. at q.h.s. 3. Change trazodone 50 mg p.o. q.h.s. to h.s. p.r.n. 4. Add Haldol 1 mg IM q.6 hours p.r.n. 5. Continue Celexa 10 mg p.o. daily. 6. Monitor for agitation. Thank you for this consultation. Discussed with nursing staff and family members. Dictated by Ashleigh Ashford PA-C Stanley Trejo MD [facility] /[id number]
[2018-12-18] VITALS (7 sets, daily range): BP systolic 72–123; BP diastolic 44–83
[2018-12-18] MEDS: ALBUTEROL/IPRATROPIUM 3 ML NEB NEB SCH ×3 (00:10→13:45)
[2018-12-18 04:40] LABS: BASOPHILS % 0.2 % (0.0-1.0); EOSINOPHILS # (AUTO) 0.2 (0.0-0.4); EOSINOPHILS % 1.8 % (0.0-6.0); HEMATOCRIT 52.2 % (38.2-49.6); HEMOGLOBIN 17.5 g/dL (14.0-18.0); LYMPHOCYTES # (AUTO) 2.3 (1.0-3.2); LYMPHOCYTES % 26.2 % (18.0-39.1); MEAN CORPUSCULAR HEMOGLOBIN 31.9 pg (28-32); MEAN CORPUSCULAR HGB CONC 33.5 g/dL (31-35); MEAN CORPUSCULAR VOLUME 95.1 fL (81-99); MONOCYTES % 11.5 % (4.4-11.3); NEUTROPHILS # (AUTO) 5.3 (2.1-6.9); PLATELET COUNT 212 x10e3/uL (140-360); RED BLOOD COUNT 5.49 x10e6/uL (4.3-5.7); RED CELL DISTRIBUTION WIDTH 12.9 % (11.7-14.4)
[2018-12-18 05:03] LABS: ANION GAP 11.1 mmol/L (8-16); BLOOD UREA NITROGEN 21 mg/dL (7-26); BUN/CREATININE RATIO 26 (6-25); CALCIUM 10.6 mg/dL (8.4-10.2); CARBON DIOXIDE 35 mmol/L (22-29); CHLORIDE 95 mmol/L (98-107); EST GLOMERULAR FILTRATION RATE > 60 ML/MIN (60-); GLUCOSE 102 mg/dL (74-118); POTASSIUM 4.1 mmol/L (3.5-5.1); SODIUM 137 mmol/L (136-145)
--- NOTE | 2018-12-18 07:00 | NUR ---
RECEIVED AM REPORT FROM NURSE, MORNING ROUNDS DONE. PT IS SLEEPING, NO S/S OF DISTRESS. CALL LIGHT IS WITHIN REACH, SIDE RAILS ARE UP. IS AT THE BEDSIDE. SITTER IS AT THE BEDSIDE
[2018-12-18] MEDS: CITALOPRAM HYDROBROMIDE 20 MG TAB PO SCH (08:22)
[2018-12-18] MEDS: METOPROLOL TARTRATE 50 MG TAB PO SCH (08:22)
[2018-12-18] MEDS: TAMSULOSIN HCL 0.4 MG CAP PO SCH (08:22)
[2018-12-18] MEDS: FAMOTIDINE 20 MG TAB PO SCH ×2 (08:23→17:25)
[2018-12-18] MEDS: GUAIFENESIN 600 MG TAB PO SCH (08:23)
--- NOTE | 2018-12-18 09:07 | Diagnostic Imaging Report ---
MRI BRAIN WO HISTORY: Altered mental status COMPARISON: Head CT 12/16/2018 TECHNIQUE: Axial T2, multiplanar 3-D T1, axial T2/FLAIR, axial gradient echo (or susceptibility weighted), and axial diffusion weighted MR images of the brain were obtained without contrast. DISCUSSION: Scalp/bone marrow: Unremarkable. Brain sulci: Prominent. Ventricles: Compensatory dilatation. Extra-axial spaces: No masses or fluid collections. Parenchyma: Bilateral temporal pole and medial orbitofrontal encephalomalacia may be from remote trauma. Scattered T2/FLAIR hyperintense foci throughout the supratentorial white matter are likely chronic microvascular ischemic changes. Otherwise, no mass, hemorrhage, or acute vascular insults. Vessels: Normal flow voids in major arteries and veins. Sellar/Suprasellar region: No abnormalities. Craniocervical junction: No abnormalities. Incidental findings: None. IMPRESSION: 1. No acute intracranial abnormalities. 2. Mild to moderate supratentorial chronic microvascular ischemic change. 3. Mild generalized cerebral volume loss. 4. Bilateral temporal pole and medial orbitofrontal encephalomalacia may be from remote trauma. Signed by: Dr. Buzz Jain M.D. on 12/18/2018 9:04 AM
[2018-12-18] MEDS ORDERED: RISPERDAL0.5 MG PO (10:22)
[2018-12-18] MEDS ORDERED: TRAZODONE HCL50 MG PO (10:22)
--- NOTE | 2018-12-18 11:30 | NUR ---
bp is 81/59, informed ZHANNA Martinez. new orders to bolus 500ml. will continue to monitor pt
[2018-12-18] MEDS ORDERED: SODIUM CHLORIDE 0.9% 500ML 500 ML ONE (11:42)
--- NOTE | 2018-12-18 12:20 | Progress Note ---
DATE: SUBJECTIVE: The patient's is very eager to take care him at home. He is less agitated today, but still has some forgetfulness. PHYSICAL EXAMINATION: VITAL SIGNS: The patient is afebrile. HEENT: No facial swelling or erythema. CARDIAC: Regular rate and rhythm with normal S1, S2. There are no murmurs or rubs. LUNGS: Auscultation of lungs reveals a prolonged expiratory phase bilaterally. ABDOMEN: Soft, nontender. IMPRESSION: 1. Metabolic encephalopathy. 2. Bronchiectasis with acute exacerbation. 3. Moderate protein-calorie malnutrition. 4. Chronic obstructive pulmonary disease with acute exacerbation. PLAN: 1. Continue current bronchodilators. 2. Home oxygen. 3. The patient will need followup and evaluation for any atypical mycobacterial infections or underlying causes of bronchiectasis. Ari Stanley MD [facility]/SUSANNAHL /[id number]
[2018-12-18] MEDS ORDERED: SODIUM CHLORIDE 0.9% 500ML 500 ML IV ONE (12:35)
--- NOTE | 2018-12-18 13:25 | NUR ---
Pt was 94% on 2LHF NC at rest. On exertion pt was 94% on 2LHFNC. On Room Air pt was 83% on exertion.
--- NOTE | 2018-12-18 15:00 | NUR ---
bp is 72/44, informed ZHANNA Martinez. new orders to bolus 1 liter of NS. will continue to monitor pt
--- NOTE | 2018-12-18 15:05 | NUR ---
ORDER RECEIVED FOR HOME PT. MET W THE PT AND SPOUSE AT THE BEDSIDE. PT INITIALLY DECLINED THE SERVICE. PT'S STATES THEY WERE IN THE PROCESS OF PAINTING THEIR HOME. ASSURED PT THE THERAPIST WOULD WORK AROUND REMODELING. PROVIDED PT CHOICE. PT STATES HE WOULD LIKE SOMEONE IN NETWORK W HIS INSURANCE. LIST PROVIDED. PT CHOSE [facility]. CHOICE LETTER WAS SIGNED. COPY TO PT AND COPY TO CHART.
--- NOTE | 2018-12-18 15:08 | NUR ---
HOME HEALTH DISCHARGE NOTE PATIENT ADDRESS WHERE SERVICE WILL BE RECEIVED: [id number] [place] [address] PATIENT CONTACT NUMBER: [phone] NAME OF HOME HEALTH COMPANY: [employer] TELEPHONE/FAX NUMBER OF COMPANY: OFF: [phone] / FAX: [phone] ADDRESS OF COMPANY: [id number] [place], [place] [address] SERVICES TO RECEIVE: PHYSICAL THERAPY ANTICIPATED DATE SERVICES WILL BEGIN: 12/19/2018 Please call the company above if you have not received a call to schedule a home visit within 24 hours of discharge.
[2018-12-18] MEDS ORDERED: SODIUM CHLORIDE 0.9% 1000ML 1,000 ML ONE (15:09)
[2018-12-18] MEDS ORDERED: SODIUM CHLORIDE 0.9% 1000ML 1,000 ML IV ONE (15:30)
--- NOTE | 2018-12-18 16:58 | NUR ---
AFTER GIVING 1 LITER BOLUS BP WAS 87/64. NOTIFIED ZHANNA ANM. GOT NEW ORDER FOR MIDODRINE 5MG TID WITH FIRST DOSE NOW. WILL CONTINUE TO MONITOR
[2018-12-18] MEDS ORDERED: MIDODRINE 2.5 MG TAB PO SCH (17:00)
--- NOTE | 2018-12-18 18:22 | NUR ---
CHECKED BP AFTER GIVING MIDODRINE: 100/73. NOTIFIED ZHANNA NAM WITH ORDERS TO SEND THE PATIENT HOME AND GORDON WILL CALL IN PRESCRIPTION FOR MIDODRINE TO THE PATIENTS PHARMACY TO TAKE AT HOME.
--- NOTE | 2018-12-19 13:56 | Discharge Summary ---
ADMISSION DIAGNOSES: 1. Acute exacerbation of chronic obstructive pulmonary disease. 2. Atrial fibrillation. 3. Anxiety. 4. Depression. 5. Benign prostatic hypertrophy. 6. Insomnia. DISCHARGE DIAGNOSES: 1. Acute exacerbation of chronic obstructive pulmonary disease. 2. Atrial fibrillation. 3. Anxiety. 4. Depression. 5. Benign prostatic hypertrophy. 6. Insomnia. 7. Rule out cerebrovascular accident. 8. Rule out transient ischemic attack. HISTORY: The patient has a history of COPD, bladder cancer, atrial fibrillation, anxiety, depression, insomnia. SURGICAL HISTORY: Bladder tumor removal. FAMILY HISTORY: The patient's father and sister had diabetes. SOCIAL HISTORY: The patient admits to occasional alcohol use and he quit smoking about 2 or 3 years ago, but he uses chew. HOSPITAL COURSE: A 78-year-old male with past medical history of COPD, admits with shortness of breath and dyspnea on exertion x1-2 months, worsening over the last 1-2 weeks. He denies cough, wheeze, fever, chest pain, and palpitations. Symptoms worsened with activity and improved with rest. On admission, the patient was started on Rocephin, Zithromax, nebs, Mucinex, and Solu-Medrol. Pulmonology was consulted. Chest x-ray showed bilateral diffusely increased interstitial opacities and likely bronchiectasis. CT of the chest was ordered that showed severe diffuse centrilobular and paraseptal emphysema, lower lobe predominant interstitial thickening and scarring with tubular bronchiectasis and subpleural honeycombing consistent with interstitial lung disease in the UIP pattern. The patient was very eager to go home and as was his . So initially, he was to be discharged a couple of days after hospitalization. Later that day, the patient became confused and agitated, so a CT of the brain was done, which was negative. MRI of the brain was done, which was also negative. UA was negative. Ammonia was within normal limits, as were electrolytes. Blood cultures were negative. It appeared to be due to the steroids, so it was weaned down quickly and stopped per Pulmonology. The patient began improving once the steroids were off. The patient then became hypotensive, so he was started on Midodrine t.i.d. His blood pressure improved on Midodrine, so he was discharged home with Trelegy inhaler, trazodone, and Risperdal and Midodrine. The patient and understand discharge instructions and agreed to plan. He also qualified for home PT, which was arranged prior to discharge. Dictated by Anna Espinal, ELEANOR MD VICTORINO Wilson/JOSIAS /[id number]
== END 2018-12-18 19:08 | disposition home or self-care (01) | DRG 190 ==
LOC: ER 11:49 → ERHOLD 12:58 → MED/SURG3 14:52 → OBSVTOIN 18:37
PROVIDERS: ADMIT Internal Medicine; ATTEND Internal Medicine
DX: J44.1 Chronic obstructive pulmonary disease with (acute) exacerbation (principal); E43 Unspecified severe protein-calorie malnutrition; G93.41 Metabolic encephalopathy; J84.9 Interstitial pulmonary disease, unspecified; F41.9 Anxiety disorder, unspecified; F32.9 Major depressive disorder, single episode, unspecified; I48.91 Unspecified atrial fibrillation; Z79.01 Long term (current) use of anticoagulants; Z85.51 Personal history of malignant neoplasm of bladder; Z87.891 Personal history of nicotine dependence; I95.9 Hypotension, unspecified; Z68.21 Body mass index [BMI] 21.0-21.9, adult; R09.02 Hypoxemia; F29 Unspecified psychosis not due to a substance or known physiological condition; N40.1 Benign prostatic hyperplasia with lower urinary tract symptoms; R33.8 Other retention of urine
CPT/HCPCS: 36415; 36600; 70450; 70551; 71045; 71250; 80048; 80053; 80076; 81001; 82140; 82550; 82553; 82805; 83036; 83880; 84134; 84439; 84443; 84484; 85025; 85610; 85730; 87040; 87086; 93005; 93306; 94640; 97139; 99285; J0456; J0696; J1940; J2405; J2920; J2930; J7030; J7040; J7050